=== PATIENT | male | born 1955 | race Two or more races ===

== ENCOUNTER 2021-07-30 09:55 | Emergency (ER) | payer SELFPAY ==
[2021-07-30 10:19] VITALS: TEMP 97.9; BMI 25.0
[2021-07-30 13:41] LABS: BASO % 0.7 % (0-2.0); EOS % 4.2 % (0-4.5); HEMOGLOBIN 15.2 GM/dL (11.7-16.9); LYMPH % 24.1 % (8-40); MCH 30.6 pg (25.7-33.7); MEAN CELL VOLUME 92.8 fl (80-96); MEAN PLT VOLUME 9.1 fl (7.5-11.1); MONO % 12.9 % (3.8-10.2); NEUT % 58.1 % (42.8-82.8); PLATELET COUNT 135 10^3/uL (134-434); RBC 4.96 M/mm3 (4.00-5.60); RDW 14.3 % (11.9-15.9); WHITE BLOOD COUNT 5.3 K/mm3 (4.0-10.0)
[2021-07-30 14:08] LABS: BLOOD UREA NITROGEN 20.7 mg/dL (7-18); CALCIUM 9.1 mg/dL (8.5-10.1)
[2021-07-30 14:09] LABS: ALBUMIN 3.4 g/dl (3.4-5.0)
[2021-07-30 14:12] LABS: CREATININE 1.4 mg/dL (0.55-1.3)
[2021-07-30 14:13] LABS: BILIRUBIN,TOTAL 0.8 mg/dL (0.2-1); TOT PROT 7.1 g/dl (6.4-8.2)
[2021-07-30 19:02] VITALS: BP 192/112; PULSE 66
== END 2021-07-30 18:45 | disposition home or self-care (01) ==
LOC: JER 09:55
DX: H05.229 Edema of unspecified orbit (principal)
CPT/HCPCS: 36415; 80053; 84439; 84443; 85025; 93005; 93010; 99284-25